=== PATIENT | female | born 1960 | race Caucasian/White ===

== ENCOUNTER 2020-07-14 10:12 | Emergency (ER) | payer OTHER ==
[~2020-07-14] VITALS: Ht 172.7 cm; Wt 74.8 kg
[2020-07-14 10:16] VITALS: BP 181/86
[2020-07-14] MEDS ORDERED: AMOX-1000 PO (11:57)
[2020-07-14] MEDS ORDERED: FEXO-8 PO (11:57)
[2020-07-14] MEDS ORDERED: PSEU-250 PO (11:57)
[2020-07-14 12:09] VITALS: BP 189/87
== END 2020-07-14 12:09 | disposition home or self-care (01) ==
LOC: MED 10:12
DX: J32.9 Chronic sinusitis, unspecified (principal)
CPT/HCPCS: 71045; 99283